=== PATIENT | female | born 1985 | race Caucasian/White ===

== ENCOUNTER → 2020-02-08 | Day surgery (SDC) | payer MEDICAID, OTHER ==
[2020-02-01 16:02] VITALS: BMI 26.4
[~2020-02-08] MED LIST: SODIUM CHLORIDE 0.9% 1,000 ML IV SCH
[2020-02-08 08:57] VITALS: RESP 18; TEMP 98
[2020-02-08 11:42] VITALS: BP 124/72; PULSE 71
--- NOTE | 2020-02-08 12:07 | PCN ---
PROCEDURE NOTE A 35-year-old female who carries a diagnosis of POTS. She was treated with midodrine. I asked her to stop midodrine for 48 hours and proceed with a tilt table test. Baseline heart rate 69 beats per minute. Baseline blood pressure 122/70 mmHg. Baseline 12-lead ECG shows a sinus rhythm, normal cardiac intervals, normal BUN interval, normal ST segments and sinus arrhythmia noted. The patient is tilted upright at an angle of 70 degrees per protocol. There was no change in her heart rate or blood pressure. No symptoms were noted. Immediately upon assuming upright position, her blood pressure did drop from 111/85 to 97/71 mmHg without any symptoms but it normalized quickly within a minute or so. IMPRESSION: 1. Very mild orthostatic hypotension, asymptomatic. 2. No evidence of postural tachycardia syndrome. 3. No evidence for neurocardiogenic syncope. [id number] / IJN: [id number] /
== END ==
LOC: CATHEP 07:53
PROVIDERS: ATTEND Internal Medicine Clinical Cardiac Electrophysiology
DX: I49.8 Other specified cardiac arrhythmias (principal); I47.2 Ventricular tachycardia; E28.2 Polycystic ovarian syndrome; Z88.0 Allergy status to penicillin; Z79.899 Other long term (current) drug therapy; Z82.49 Family history of ischemic heart disease and other diseases of the circulatory system
CPT/HCPCS: 81025; 93005; 93660